=== PATIENT | female | born 2000 | race Caucasian/White ===

== ENCOUNTER 2022-06-08 22:15 | Observation (INO) ==
[2022-06-09] MEDS ORDERED: Ketorolac 30 MG/ML VIAL IVP ONE (04:27)
[2022-06-09] MEDS ORDERED: 0.9 % Sodium Chloride 1,000 ML IVC ONE ×2 (06:07→07:39)
[2022-06-09 06:48] LABS: Basophils % 0.1 %; Eosinophils % 0.1 %; Hematocrit 37.8 % (35.3-44.9); Hemoglobin 13.1 g/dL (11.5-15.4); Immature Granulocytes % 0.4 % (0-4); Lymphocytes # 0.7 K/mcL (0.6-4.6); Mean Corpuscular HGB Conc 34.7 g/dL (31.6-35.5); Mean Corpuscular Hemoglobin 31.3 pg (28.0-33.3); Mean Corpuscular Volume 90.4 fL (83.0-100.0); Mean Platelet Volume 8.4 fL (9.4-12.4); Monocytes # 0.7 K/mcL (0.0-1.3); Monocytes % 3.6 %; Neutrophils # 17.1 K/mcL (1.6-8.9); Platelet Count 200 K/mcL (140-400); Red Blood Count 4.18 M/mcL (3.82-4.97); Red Cell Distribution Width 12.6 % (11.5-14.5); Segmented Neutrophils % 91.8 %; White Blood Count 18.6 K/mcL (4.3-11.1)
[2022-06-09 06:51] LABS: Bilirubin,Urine Negative (Negative); Blood,Urine Negative (Negative); Clarity,Urine Turbid (Clear); Color,Urine Light-Yellow (Yellow); Glucose,Urine (UA) Normal (Normal); Ketones,Urine Trace mg/dL (Negative); Leukocyte Esterase,Urine Negative (Negative); Mucus,Urine Few per lpf (None-Few); Nitrite,Urine Negative (Negative); PH,Urine 7.5 pH Units (5.0-8.0); Protein,Urine Trace mg/dL (Neg-Trace); Specific Gravity,Urine 1.024 (1.010-1.025); Squamous Epithelial Cell,Urine Few per hpf (None-Few); Urobilinogen,Urine Normal (Normal)
[2022-06-09 07:07] LABS: Alanine Aminotransferase 13 Units/L (7-52); Albumin 4.1 g/dL (3.5-5.7); Albumin/Globulin Ratio 1.7 (1.1-2.2); Alkaline Phosphatase 67 Units/L (34-104); Aspartate Amino Transferase 13 Units/L (13-39); BUN/Creatinine Ratio 10 (6-26); Bilirubin,Direct 0.3 mg/dL (0.0-0.2); Bilirubin,Indirect 0.8 mg/dL (0.0-1.0); Bilirubin,Total 1.1 mg/dL (0.3-1.0); Blood Urea Nitrogen 8 mg/dL (6-20); Calcium 8.8 mg/dL (8.6-10.3); Carbon Dioxide 24 mEq/L (23-29); Chloride 105 mEq/L (98-107); Globulin 2.4 g/dL (2.4-3.5); Glucose 129 mg/dL (70-105); Osmolality,Calculated 282 (280-300); Potassium 3.3 mEq/L (3.5-5.1); Sodium 136 mEq/L (136-145); Total Protein 6.5 g/dL (6.4-8.9)
[2022-06-09] MEDS ORDERED: Ondansetron 4 MG/2 ML VIAL IVP ONE (07:17)
[2022-06-09] MEDS ORDERED: Morphine Sulfate 2 MG/ML SYRINGE IVP ONE (07:17)
[2022-06-09] MEDS ORDERED: hydrOXYzine pamoate 25 MG CAPSULE PO PRN (08:57)
[2022-06-09] MEDS ORDERED: Ringers Solution, Lactated 1,000 ML IVC SCH (09:00)
[2022-06-09] MEDS ORDERED: Venlafaxine XR (24 HR) 150 MG CAP.ER.24H PO SCH (09:00)
[2022-06-09 09:14] LABS: Amphetamine Screen,Urine Negative ng/mL (Cutoff=1000); Barbiturate Screen,Urine Negative ng/mL (Cutoff=200); Benzodiazepines Screen,Urine Negative ng/mL (Cutoff=200); Cannabinoid Screen,Urine Negative ng/mL (Cutoff = 50); Cocaine Screen,Urine Negative ng/mL (Cutoff= 300); Opiate Screen,Urine Negative ng/mL (Cutoff=300); Phencyclidine Screen,Urine Negative ng/mL (Cutoff=25)
[2022-06-09] MEDS ORDERED: Ondansetron 4 MG/2 ML VIAL IVP PRN (09:24)
[2022-06-09] MEDS ORDERED: Naloxone 0.4 MG/ML INJ IVP PRN (09:24)
[2022-06-09] MEDS ORDERED: Melatonin 3 MG TABLET PO PRN (09:24)
[2022-06-09 09:26] LABS: C-Reactive Protein 137 mg/L (Less than 10)
[2022-06-09] MEDS: Ketorolac 30 MG/ML VIAL IVP PRN ×2 (09:36→15:36)
[2022-06-09] MEDS ORDERED: Piperacillin/Tazobactam 3.375 GM in 0.9 % Sodium Chloride Mini Bag 100 ML IVPB SCH ×2 (10:30→20:00)
[2022-06-09] MEDS ORDERED: 0.9 % Sodium Chloride 1,000 ML IVC SCH (11:30)
[2022-06-09] MEDS ORDERED: *HR* OxyCODONE/APAP 5/325 TABLET PO PRN (18:02)
[2022-06-09] MEDS ORDERED: Lidocaine HCL 4 ML Topical Solution (Laryng-O-Jet Kit Sterile Pak) TP ONE (19:54)
[2022-06-09] MEDS ORDERED: *HR* Propofol 200 MG/20 ML VIAL IVP ONE (21:04)
[2022-06-09] MEDS ORDERED: *HR* Midazolam HCl 2 MG/2 ML VIAL ONE (21:04)
[2022-06-09] MEDS ORDERED: Ondansetron 4 MG/2 ML VIAL ONE (21:04)
[2022-06-09] MEDS ORDERED: *HR* FentaNYL (PF) 100 MCG/2 ML VIAL ONE (21:04)
[2022-06-09] MEDS ORDERED: Lidocaine -MPF 2% 5 ML VIAL ONE (21:04)
[2022-06-09] MEDS ORDERED: *HR* Rocuronium Bromide 50 MG/5 ML VIAL ONE (21:04)
[2022-06-09] MEDS ORDERED: Acetaminophen IV 1,000 MG/100 ML BAG IVPB ONE ×2 (21:22→23:38)
[2022-06-09] MEDS ORDERED: *HR* HYDROmorphone PF 0.5 MG/0.5 ML SYRINGE IVP PRN (22:21)
[2022-06-09] MEDS ORDERED: Ketorolac 30 MG/ML VIAL ONE ×2 (22:59)
[2022-06-09] MEDS ORDERED: Haloperidol Lactate 5 MG/ML VIAL ONE (23:11)
[2022-06-10] MEDS ORDERED: Acetaminophen IV 1,000 MG/100 ML BAG IVPB SCH
[2022-06-10] MEDS ORDERED: Sugammadex Sodium 200 MG/2 ML VIAL IV ONE (00:15)
[2022-06-10] MEDS ORDERED: *HR* HYDROMORPHONE 2 MG/ML VIAL ONE (00:25)
[2022-06-10] MEDS ORDERED: Melatonin 3 MG TABLET PO PRN (01:35)
[2022-06-10] MEDS ORDERED: hydrOXYzine pamoate 25 MG CAPSULE PO PRN (01:35)
[2022-06-10] MEDS ORDERED: Naloxone 0.4 MG/ML INJ IVP PRN (01:35)
[2022-06-10] MEDS ORDERED: Ondansetron 4 MG/2 ML VIAL IVP PRN (01:35)
[2022-06-10] MEDS: Piperacillin/Tazobactam 3.375 GM in 0.9 % Sodium Chloride Mini Bag 100 ML IVPB SCH ×2 (04:00→11:13)
[2022-06-10] MEDS: Ketorolac 30 MG/ML VIAL IVP SCH ×2 (05:56→11:13)
[2022-06-10] MEDS: Acetaminophen IV 1,000 MG/100 ML BAG IVPB SCH ×2 (06:00→11:14)
[2022-06-10 06:56] LABS: Basophils % 0.1 %; Hemoglobin 11.7 g/dL (11.5-15.4); Lymphocytes # 0.7 K/mcL (0.6-4.6); Lymphocytes % 3.5 %; Mean Corpuscular HGB Conc 33.4 g/dL (31.6-35.5); Mean Corpuscular Hemoglobin 31.3 pg (28.0-33.3); Mean Corpuscular Volume 93.6 fL (83.0-100.0); Mean Platelet Volume 8.8 fL (9.4-12.4); Monocytes # 0.8 K/mcL (0.0-1.3); Monocytes % 4.3 %; Neutrophils # 17.8 K/mcL (1.6-8.9); Platelet Count 182 K/mcL (140-400); Red Blood Count 3.74 M/mcL (3.82-4.97); Red Cell Distribution Width 12.8 % (11.5-14.5); Segmented Neutrophils % 91.1 %; White Blood Count 19.5 K/mcL (4.3-11.1)
[2022-06-10] MEDS ORDERED: Venlafaxine XR (24 HR) 150 MG CAP.ER.24H PO SCH (09:00)
[2022-06-10 14:05] VITALS: BP 108/69; PULSE 86; TEMP 98.1; O2SAT 100
== END 2022-06-10 14:47 | disposition home or self-care (01) ==
LOC: 3ANU 22:15 → EMEROOARM 22:15 → SUATTDRO 06-09 07:55 → 3ANU 06-09 08:39
PROVIDERS: ADMIT Internal Medicine; ATTEND Family Medicine